=== PATIENT | female | born 1995 | race Caucasian/White ===

== ENCOUNTER 2021-08-04 08:00 | Outpatient (CLI) | payer SELFPAY | END 2021-08-04 23:59 | LOC: LAB.N 08:00 | PROVIDERS: ATTEND Family Medicine | DX: R05.9 Cough, unspecified (principal); Z20.822 Contact with and (suspected) exposure to COVID-19 ==

== ENCOUNTER 2021-12-21 08:00 | Outpatient (CLI) | payer OTHER | END 2021-12-21 23:59 | disposition home or self-care (01) | LOC: LAB.N 08:00 | PROVIDERS: ATTEND Physician Assistant | DX: U07.1 COVID-19 (principal) ==

== ENCOUNTER 2022-04-26 15:10 | Outpatient (CLI) | payer OTHER ==
[2022-04-26 22:50] LABS: CHLAMYDIA TRACHOMATIS DNA NEGATIVE (NEGATIVE); NEISSERIA GONORRHOEAE DNA NEGATIVE (NEGATIVE); TRICHOMONAS VAGINALIS DNA NEGATIVE (NEGATIVE)
[2022-04-27 05:11] LABS: HCV AB <0.1 s/co ratio (0.0-0.9)
[2022-04-27 06:09] LABS: HSV 1 IGG TYPE SPEC <0.91 index (0.00-0.90); HSV 2 IGG TYPE SPEC <0.91 index (0.00-0.90); RPR Non Reactive (Non Reactive)
[2022-04-27 08:10] LABS: HIV SCREEN 4TH GENERATION Non Reactive (Non Reactive)
== END 2022-04-26 15:11 | disposition home or self-care (01) ==
LOC: LAB.N 15:10
PROVIDERS: ATTEND Physician Assistant
DX: Z11.3 Encounter for screening for infections with a predominantly sexual mode of transmission (principal)
CPT/HCPCS: 36415; 81599; 86592; 86695; 86696; 86803; 87389; 87491; 87591; 87661